=== PATIENT | female | born 1980 | race Caucasian/White ===

== ENCOUNTER 2021-05-18 08:35 | Emergency (ER) | payer SELFPAY ==
[~2021-05-18] VITALS: Ht 154.9 cm; Wt 68.9 kg
[2021-05-18 08:38] VITALS: BP 105/57
--- NOTE | 2021-05-18 08:41 | NUR ---
PT AMBULATED TO BED 4.
--- NOTE | 2021-05-18 08:45 | NUR ---
40 y/o F BIB self from home with c/c left wrist pain x 1 day. Patient A&Ox4, reports she was at home cleaning a fan with a pole while the fan was on; fan bent her wrist back. Patient reports 10/10, constant pain to left lateral wrist; swelling noted. Patient states she woke up today with limited ROM to left wrist. Patient denies any medications for pain. Denies any other trauma, injury to extremities. Bed locked in lowest position, side rails x 1. PMH/Sx/Meds: Denies NKA
--- NOTE | 2021-05-18 08:52 | NUR ---
RAD at bedside
--- NOTE | 2021-05-18 08:58 | NUR ---
Dr. Rubi is evaluating patient at bedside.
[2021-05-18 10:09] VITALS: BP 105/57
--- NOTE | 2021-05-18 10:09 | NUR ---
Patient discharged with v/s stable. Written and verbal after care instructions given and explained. Patient verbalized understanding. Ambulatory with steady gait. All questions addressed prior to discharge. Advised to follow up with PMD.
== END 2021-05-18 10:09 | disposition home or self-care (01) ==
LOC: MED 08:35
DX: M25.532 Pain in left wrist (principal); X58.XXXA Exposure to other specified factors, initial encounter; Y93.89 Activity, other specified; Y92.89 Other specified places as the place of occurrence of the external cause; Y99.8 Other external cause status
CPT/HCPCS: 73110; 99283